=== PATIENT | male | born 1960 | race Caucasian/White ===

== ENCOUNTER 2016-10-03 01:15 | Emergency (ER) | payer BC ==
[2016-10-03 01:39] LABS: CHLORIDE,CL 104 mEq/L (98-106); SODIUM,NA 140 mEq/L (136-145)
--- NOTE | 2016-10-03 01:46 | EDM.PDOC ---
ED HISTORY OF PRESENT ILLNESS - General Chief Complaint: Chest Pain Stated Complaint: chest pain Time Seen by Provider: 10/03/16 01:30 Source of Information: Reports: Patient History Limitations: Reports: No limitations - History of Present Illness INITIAL COMMENTS - FREE TEXT/NARRATIVE: Harmeet is a 56 yo male who presents to the ER with concerns of chest pain. States he has been having a dull aching pain for the last week or so that gradually worsened tonight. Admits initially he thought it may be secondary to GERD and tried taking Zantac and Jada-seltzer without any relief this week. States this evening as it was worse and not subsiding thought he better have it checked out. Admits if he is up moving around it seems to improve. Isn't sure if this is because he is busy and not thinking about it at that time. Denies any other symptoms in regards to the discomfort. Has been feeling well otherwise. Timing/Duration: Reports: Getting worse, Unsure Location, General: Reports: chest - Related Data Allergies/ADRs: Allergies Allergy/AdvReac Type Severity Reaction Status Date / Time No Known Allergies Allergy Verified 10/03/16 01:30 Home Meds: Home Meds . [No Known Home Meds] 10/03/16 [History] Past Medical History - Past Health History Medical/Surgical History: Denies Medical/Surgical History Neurological History: Reports: Migraines (in the past when he smoked) Psychiatric History: Reports: Anxiety - Past Surgical History Musculoskeletal Surgical History: Reports: Arthroscopic knee Social & Family History - Tobacco Use Smoking Status *Q: Former Smoker - Alcohol Use Days Per Week of Alcohol Use: 2 Number of Drinks Per Day: 4 Total Drinks Per Week: 8 - Recreational Drug Use Recreational Drug Use: No ED ROS GENERAL - Review of Systems Review Of Systems: See Below Constitutional: Denies: fever, chills, weakness, decreased appetite HEENT: Reports: No symptoms Respiratory: Reports: No Symptoms. Denies: Shortness of Breath Cardiovascular: Reports: Chest pain. Denies: Blood pressure problem, Dyspnea on exertion, Lightheadedness, Palpitations GI/Abdominal: Reports: No symptoms. Denies: Abdominal pain, Constipation, Diarrhea, Nausea, Vomiting : Reports: no symptoms Musculoskeletal: Reports: no symptoms Skin: Reports: no symptoms Neurological: Reports: No Symptoms ED EXAM, GENERAL - Physical Exam Exam: See Below Exam Limited By: No limitations General Appearance: alert, no apparent distress Ears: normal external exam, normal canal, hearing grossly normal, normal TMs Nose: normal inspection, normal mucosa, no blood Throat/Mouth: Normal inspection, Normal lips, Normal teeth, Normal gums, Normal oropharynx, Normal voice, No airway compromise Head: atraumatic, normocephalic Neck: normal inspection, supple, full range of motion Respiratory/Chest: no respiratory distress, lungs clear, normal breath sounds, no accessory muscle use, chest non-tender Cardiovascular: normal peripheral pulses, regular rate, rhythm, no edema, no gallop, no JVD, no murmur GI/Abdominal: normal bowel sounds, soft, non tender, no organomegaly, no distention, no abnormal bruit, no mass Neurological: alert, oriented, normal cognition, no motor/sensory deficits Psychiatric: normal affect, normal mood Skin Exam: Warm, Dry, Intact, Normal color, No rash EKG INTERPRETATION EKG Date: 10/03/16 Rhythm: NSR Comparison: NA - no prior EKG Course - Vital Signs Last Recorded V/S: Last Vital Signs Temp 97.4 F 10/03/16 01:30 Pulse 98 10/03/16 01:30 Resp 18 10/03/16 01:30 BP 124/84 10/03/16 01:30 Pulse Ox 99 10/03/16 01:30 - Orders/Labs/Meds Orders: Active Orders 24 hr Category Date Time Status Chest 2V [CR] Stat Exams 10/03/16 01:44 Ordered Labs: Laboratory Tests 10/03/16 10/03/16 10/03/16 Range/Units 01:25 01:25 01:25 WBC 6.3 (5.0-10.0) 10^3/uL RBC 4.46 L (4.50-6.00) 10^6/uL Hgb 14.0 (14.0-18.0) g/dL Hct 40.7 (40.0-54.0) % MCV 91.3 (82.0-94.0) fL MCH 31.4 (27.0-32.0) pg MCHC 34.4 (33.0-38.0) g/dL RDW Coeff of Jannie 12.3 (11.0-15.0) % Plt Count 229 (150-400) 10^3/uL Neut % (Auto) 42.5 (35-85) % Lymph % (Auto) 43.7 (10-55) % [place] % (Auto) 8.4 (0-16) % Eos % (Auto) 4.8 (0-5) % Baso % (Auto) 0.6 (0-3) % Neut # (Auto) 2.68 (1.80-7.00) 10^3/uL Lymph # (Auto) 2.75 (1.00-4.80) 10^3/uL [place] # (Auto) 0.53 (0.00-0.80) 10^3/uL Eos # (Auto) 0.30 (0.00-0.45) 10^3/uL Baso # (Auto) 0.04 10^3/uL PT 10.7 (9.7-12.3) SEC INR 0.99 (0.92-1.18) Sodium 140 (136-145) mEq/L Potassium 3.6 (3.5-5.0) mEq/L Chloride 104 (98-106) mEq/L Carbon Dioxide 25 (21-32) mmol/L BUN 15 (7-18) mg/dL Creatinine 1.2 (0.7-1.3) mg/dL Est Cr Clr Drug Dosing 77.68 mL/min Estimated GFR (MDRD) > 60 (>=60) mL/min Glucose 114 H (75-99) mg/dL Calcium 8.5 (8.4-10.1) mg/dL Lactate Dehydrogenase 164 (100-190) U/L Creatine Kinase 112 (35-232) U/L Troponin I < 0.017 (0.00-0.06) ng/mL Departure - Departure Time of Disposition: 02:04 Disposition: Home, Self-Care 01 Clinical Impression: Nonspecific chest pain Instructions: Nonspecific Chest Pain, [id number] Forms: ED Department Discharge Additional Instructions: 1) EKG, laboratory work and chest x-ray showed no acute findings. 2) Recommend following up with primary provider for further evaluation and work up if symptoms continue 3) If discomfort worsens or any new onset of symptoms, recommend returning to ER for reevaluation - Problem List & Annotations (1) Nonspecific chest pain SNOMED Code(s): 76771463 Code(s): R07.9 - CHEST PAIN, UNSPECIFIED Status: Acute - Problem List Review Problem List Initiated/Reviewed/Updated: Yes - My Orders Last 24 Hours: My Active Orders 10/03/16 01:44 Chest 2V [CR] Stat - Assessment/Plan Last 24 Hours: My Active Orders 10/03/16 01:44 Chest 2V [CR] Stat Plan: Exam was grossly benign along will all testing. will discharge home at this time. Unsure of cause of chest pain and recommend follow up with primary provider for further evaluation. Advise returning to ER if symptoms worsen or any concerns.
[2016-10-03 02:43] VITALS: BP 135/88
== END 2016-10-03 02:15 | disposition home or self-care (01) ==
LOC: CC.ED 01:24 → MERGE 01:24 → CC.ED 02:15
DX: R07.9 Chest pain, unspecified (principal); F41.9 Anxiety disorder, unspecified; Z87.891 Personal history of nicotine dependence
CPT/HCPCS: 36415; 71020; 80048; 82550; 83615; 84484; 85025; 85610; 93005; 99285

== ENCOUNTER 2018-11-24 16:38 | Emergency (ER) | payer BC, OTHER ==
[2018-11-24 17:17] VITALS: BP 136/81
--- NOTE | 2018-11-24 17:20 | EDM.PDOC ---
ED HPI GENERAL MEDICAL PROBLEM - General Chief Complaint: Syncope Stated Complaint: nausea, light headed Time Seen by Provider: 11/24/18 17:11 Source of Information: Reports: Patient History Limitations: Reports: No Limitations - History of Present Illness INITIAL COMMENTS - FREE TEXT/NARRATIVE: This patient is a 58 year old male that presents to the ER. Patient reports for 1 week having congestion, drainage, productive cough, "allergies". Patient reports also for about 1 week having left upper chest pain anterior that is worse with pushing on, coughing, and taking big deep breathes. Patient reports then today about 1 hour ago he was outside climbing a ladder when he had to have an episode of diarrhea. Patient reports afterwards he went back outside to climb a ladder. Patient reports while climbing the ladder he became lightheaded and nauseated. Patient reports that at the same time had to have another episode of diarrhea and went back in the house for this. Patient reports that his lightheadedness is with moving. Patient reports that he drinks 1-2 beers a day and 1-2 glasses of whiskey. Patient reports that he though the chest pain was caused from maybe his infection or lung. Patient reports that after he had the episode of lightheadedness, he was concerned it was his heart. This is his reason for ER visit today. Patient reports currently in the ER his lightheadedness is resolved and so is his nausea and does not have urge to have diarrhea. Onset: Today Onset Date: 11/24/18 Onset Time: 16:00 Front/Back Body Image: 1 - pain, mildly tender. Quality: Reports: Dull Severity: Mild Improves with: Reports: Rest Worsens with: Reports: Movement Associated Symptoms: Reports: Chest Pain, Cough, cough w sputum, Nausea/ Vomiting. Denies: Confusion, Diaphoresis, Fever/Chills, Headaches, Loss of Appetite, Malaise, Rash, Seizure, Shortness of Breath, Syncope, Weakness L lung Pain Score (Numeric/FACES): 2 - Related Data Allergies Allergy/AdvReac Type Severity Reaction Status Date / Time No Known Allergies Allergy Verified 11/24/18 16:48 Home Meds: Home Meds Allopurinol [Zyloprim] 1 tab PO DAILY 11/24/18 [History] Past Medical History - Past Health History Medical/Surgical History: Denies Medical/Surgical History Musculoskeletal History: Reports: Gout Neurological History: Reports: Migraines Psychiatric History: Reports: Anxiety - Past Surgical History Musculoskeletal Surgical History: Reports: Arthroscopic Knee Social & Family History - Family History Cardiac: Reports: NC, Stent - Tobacco Use Smoking Status *Q: Former Smoker Used Tobacco, but Quit: Yes Month/Year Tobacco Last Used: 12 years ago - Alcohol Use Days Per Week of Alcohol Use: 7 Number of Drinks Per Day: 2 Total Drinks Per Week: 14 - Recreational Drug Use Recreational Drug Use: No ED ROS GENERAL - Review of Systems Review Of Systems: See Below Constitutional: Reports: No Symptoms HEENT: Reports: Sinus Problem. Denies: Dental Pain, Ear Discharge, Ear Pain, Hearing Loss, Nosebleed, Nose Pain Respiratory: Reports: Pleuritic Chest Pain, Cough, Sputum. Denies: Shortness of Breath, Wheezing, Hemoptysis Cardiovascular: Reports: Chest Pain, Lightheadedness. Denies: Dyspnea on Exertion, Edema, Palpitations, Syncope Endocrine: Reports: No Symptoms GI/Abdominal: Reports: Diarrhea, Nausea. Denies: Vomiting : Reports: No Symptoms Musculoskeletal: Reports: No Symptoms Skin: Reports: No Symptoms Neurological: Reports: No Symptoms. Denies: Confusion, Headache, Seizure, Syncope, Trouble Speaking, Change in Speech Psychiatric: Reports: No Symptoms Hematologic/Lymphatic: Reports: No Symptoms Immunologic: Reports: No Symptoms ED EXAM, DIZZINESS - Physical Exam Exam: See Below Exam Limited By: No Limitations General Appearance: Alert, WD/WN, No Apparent Distress Eye Exam: Bilateral Eye: Normal Inspection, PERRL Ears: Normal External Exam, Normal Canal, Hearing Grossly Normal, Normal TMs Nose: Normal Inspection, Normal Mucosa, No Blood Throat/Mouth: Normal Inspection, Normal Lips, Normal Teeth, Normal Gums, Normal Oropharynx, Normal Voice, No Airway Compromise Head Exam: Atraumatic, Normocephalic Neck: Normal Inspection, Supple, Non-Tender, Full Range of Motion Respiratory/Chest: No Respiratory Distress, Lungs Clear, Normal Breath Sounds, No Accessory Muscle Use, Other (Left upper chest wall tenderness mild. ). No: Respiratory Distress, Decreased Breath Sounds, Crackles, Rales, Rhonchi, Wheezing, Stridor, Pleural Rub, Accessory Muscle Use, Retractions, Splinting, Prolonged Expiration Cardiovascular: Normal Peripheral Pulses, Regular Rate, Rhythm (94 on exam), No Edema, No Gallop, No JVD, No Murmur, No Rub GI/Abdominal: Normal Bowel Sounds, Soft, Non-Tender, No Organomegaly, No Distention, No Abnormal Bruit, No Mass, Pelvis Stable Neurological: Alert, Normal Mood/Affect, CN II-XII Intact, Normal Gait, No Motor /Sensory Deficits, Oriented x 3 Back Exam: Normal Inspection, Full Range of Motion Extremities: Normal Inspection, Normal Range of Motion, Non-Tender, No Pedal Edema, Normal Capillary Refill Psychiatric: Normal Affect, Normal Mood Skin Exam: Warm, Dry, Intact, Normal Color, No Rash EKG INTERPRETATION EKG Date: 11/24/18 Time: 16:42 Rhythm: NSR Rate (Beats/Min): 98 QRS: Normal ST-T: Normal QT: Normal Comparison: No Change Course - Vital Signs Last Recorded V/S: Last Vital Signs Temp 97 F 11/24/18 16:44 Pulse 94 11/24/18 16:59 Resp 18 11/24/18 16:44 BP 136/81 11/24/18 16:59 Pulse Ox 96 11/24/18 16:44 Orthostatic Blood Pressure [ 128/87 Standing] Orthostatic Blood Pressure [ 122/83 Sitting] Orthostatic Blood Pressure [ 117/78 Supine] - Orders/Labs/Meds Orders: Active Orders 24 hr Category Date Time Status EKG Documentation Completion [RC] STAT Care 11/24/18 17:13 Active Orthostatic Vital Signs [RC] ASDIRECTED Care 11/24/18 17:12 Active Chest 2V [CR] Stat Exams 11/24/18 17:12 Taken Labs: Laboratory Tests 11/24/18 11/24/18 11/24/18 Range/Units 17:20 17:20 17:23 WBC 4.5 L (5.0-10.0) 10^3/uL RBC 4.86 (4.50-6.00) 10^6/uL Hgb 15.5 (14.0-18.0) g/dL Hct 44.9 (40.0-54.0) % MCV 92.4 (82.0-94.0) fL MCH 31.9 (27.0-32.0) pg MCHC 34.5 (33.0-38.0) g/dL RDW Coeff of Jannie 12.9 (11.0-15.0) % Plt Count 254 (150-400) 10^3/uL Neut % (Auto) 55.1 (35-85) % Lymph % (Auto) 30.8 (10-55) % [place] % (Auto) 9.7 (0-16) % Eos % (Auto) 3.3 (0-5) % Baso % (Auto) 1.1 (0-3) % Neut # (Auto) 2.50 (1.80-7.00) 10^3/uL Lymph # (Auto) 1.40 (1.00-4.80) 10^3/uL [place] # (Auto) 0.44 (0.00-0.80) 10^3/uL Eos # (Auto) 0.15 (0.00-0.45) 10^3/uL Baso # (Auto) 0.05 10^3/uL Sodium 139 (136-145) mEq/L Potassium 3.9 (3.5-5.0) mEq/L Chloride 102 (98-106) mEq/L Carbon Dioxide 30 (21-32) mmol/L BUN 14 (7-18) mg/dL Creatinine 1.4 H (0.7-1.3) mg/dL Est Cr Clr Drug Dosing 65.00 mL/min Estimated GFR (MDRD) 52 L (>=60) mL/min Glucose 138 H D (75-99) mg/dL Calcium 9.3 (8.4-10.1) mg/dL Total Bilirubin 0.3 (0.0-1.0) mg/dL AST 21 (15-37) U/L ALT 26 (12-78) U/L Alkaline Phosphatase 78 (46-116) U/L Creatine Kinase 127 (35-232) U/L Troponin I < 0.017 (0.00-0.06) ng/mL Total Protein 7.4 (6.4-8.2) g/dL Albumin 3.7 (3.4-5.0) g/dL Urine Color Yellow (YELLOW) Urine Appearance Clear (CLEAR) Urine pH 5.5 (4.5-8.0) Ur Specific [place] <= 1.005 (1.003-1.020) Urine Protein Negative (NEGATIVE) mg/dL Urine Glucose (UA) Negative (NEGATIVE) mg/dL Urine Ketones Negative (NEGATIVE) mg/dL Urine Occult Blood Negative (NEGATIVE) Urine Nitrite Negative (NEGATIVE) Urine Bilirubin Negative (NEGATIVE) Urine Urobilinogen 0.2 (0.2-1.0) EU/dL Ur Leukocyte Esterase Negative (NEGATIVE) Urine RBC Not seen (0-5) /HPF Urine WBC Not seen (0-5) /HPF - Radiology Interpretation Free Text/Narrative:: CXR: Mild COPD, no infiltrates, no cardiomegaly. - Re-Assessments/Exams Free Text/Narrative Re-Assessment/Exam: 11/24/18 17:52 Discussed with patent his lab results. Discussed repeat troponin in 3 hours and IV fluids. Patient reports he feels fine, up and walking around the ER without any issues. He reports he is no longer lightheaded. Patient reports he can go home and drink fluids and rest. Patient educated to return if needed or symptoms return. He understands and agrees. Departure - Departure Time of Disposition: 17:49 Disposition: Home, Self-Care 01 Condition: Good Clinical Impression: Chest wall muscle strain, Elevated serum creatinine, Lightheaded - Discharge Information *PRESCRIPTION DRUG MONITORING PROGRAM REVIEWED*: Not Applicable *COPY OF PRESCRIPTION DRUG MONITORING REPORT IN PATIENT MASOOD: Not Applicable Instructions: Vertigo, [id number], Dehydration, Adult, [id number] Referrals: Manny Vines MD [Primary Care Provider] - Forms: ED Department Discharge Additional Instructions: Follow-up with your primary care provider Return to the ER for worsening of condition or any emergent concerns Increase fluids Rest - My Orders Last 24 Hours: My Active Orders 11/24/18 17:12 Orthostatic Vital Signs [RC] ASDIRECTED Chest 2V [CR] Stat 11/24/18 17:13 EKG Documentation Completion [RC] STAT - Assessment/Plan Last 24 Hours: My Active Orders 11/24/18 17:12 Orthostatic Vital Signs [RC] ASDIRECTED Chest 2V [CR] Stat 11/24/18 17:13 EKG Documentation Completion [RC] STAT Plan: PLEASE SEE RN NOTE FOR PFSH.
[2018-11-24 17:38] LABS: CHLORIDE,CL 102 mEq/L (98-106); SODIUM,NA 139 mEq/L (136-145)
== END 2018-11-24 18:02 | disposition home or self-care (01) ==
LOC: CC.ED 16:38
DX: S29.011A Strain of muscle and tendon of front wall of thorax, initial encounter (principal); R42 Dizziness and giddiness; R79.89 Other specified abnormal findings of blood chemistry; F41.9 Anxiety disorder, unspecified; Z87.891 Personal history of nicotine dependence; Z79.899 Other long term (current) drug therapy; X58.XXXA Exposure to other specified factors, initial encounter
CPT/HCPCS: 36415; 71046; 80053; 81001; 82550; 84484; 85025; 93005; 99284-25